=== PATIENT | male | born 1945 | race Caucasian/White ===

== ENCOUNTER 2018-10-12 10:19 | Day surgery (SDC) | payer MEDICARE, OTHER ==
[~2018-10-12 10:19] MED LIST: Acetaminophen TAB* 325 MG PO PRN; Buffered Lidocaine 1% SYRIN* 1 ML/SYRINGE INTRADERM ONE
[2018-10-12] MEDS ORDERED: Midazolam* 1 MG/ML 2 ML VIAL (2 MG) ONE (12:28)
[2018-10-12 12:55] VITALS: BP 145/76
[2018-10-12] MEDS ORDERED: Tetracaine 0.5% OPTH.SOL 4 ML* 1 DROP BTL ONE (13:51)
[2018-10-12] MEDS ORDERED: Lidocaine 1%* 5 ML VIAL ONE (13:51)
[2018-10-12] MEDS ORDERED: Phenylephrine OPHTH SOL 2.5%* 2 ML ONE (13:51)
[2018-10-12] MEDS ORDERED: Cyclopentolate 1% OPTH.SOL* 2 ML BTL ONE (13:51)
[2018-10-12] MEDS ORDERED: Tropicamide 1% OPTH.SOL* BTL ONE (13:51)
[2018-10-12] MEDS ORDERED: Neomycin/Polymy/Dex OPHTH.OIN* 3.5 GM ONE (13:51)
[2018-10-12] MEDS ORDERED: Ketorolac 0.5% OPHTH (NF) 0.5 % 5 ML BTL ONE (13:51)
--- NOTE | 2018-10-12 16:06 | OP ---
DATE OF OPERATION/DATE OF DICTATION: 10/12/2018 - [facility] DATE OF : 1945. SURGEON: Dr. Omari Lanza. [employer] ARCHITECT: None. ANESTHESIA: Topical with intravenous sedation. PRE-OP DIAGNOSIS: Cataract, right eye. POST-OP DIAGNOSIS: Cataract, right eye. OPERATIVE PROCEDURE: Phacoemulsification and cataract extraction with posterior chamber intraocular lens implant, right eye. COMPLICATIONS: None. BLOOD LOSS: None. DESCRIPTION OF PROCEDURE: The patient was brought to the operating room and received a small amount of intravenous sedation. A drop of Tetracaine was placed in his right eye. He was prepped and draped in the usual sterile fashion for ophthalmic surgery and attention was directed to the right eye where a speculum was placed. A paracentesis was created at the 11 o'clock position and 0.1 cc of 1 percent preservative-free Lidocaine was injected into the anterior chamber followed by DisCoVisc. The eye was digitally stabilized while a 2.75 mm keratome was used to create a triplanar clear corneal incision at the 9 o'clock position. A continuous curvilinear capsulorrhexis was created with a cystotome and Utrata forceps. BSS on a cannula was used to hydrodissect the lens from the capsule. Phacoemulsification was performed in a divide-and- conquer technique to create four fragments which were removed. Residual cortical material was removed with irrigation and aspiration. DisCoVisc was used to inflate the capsular bag and an AUOOTO 13.5 diopter lens was folded and inserted into the capsular bag. DisCoVisc was removed using irrigation and aspiration. BSS on a cannula was used to hydrate the corneal stroma and seal the wound. At the end of the case the pupil was round and the lens was centered. The eye was of normal pressure and the wound was water tight. The speculum was removed and topical Maxitrol ointment was placed on the surface of the eye. The eye was closed, patched and shielded and the patient was sent to the recovery room in stable condition with post operative instructions and follow-up appointment given. [id number] #: [id number] MTDD
== END 2018-10-12 13:06 | disposition home or self-care (01) ==
LOC: OREAST 10:19
PROVIDERS: ATTEND Ophthalmology
DX: H25.031 Anterior subcapsular polar age-related cataract, right eye (principal); I48.0 Paroxysmal atrial fibrillation; I25.10 Atherosclerotic heart disease of native coronary artery without angina pectoris; Z95.5 Presence of coronary angioplasty implant and graft; Z87.891 Personal history of nicotine dependence; R73.01 Impaired fasting glucose; J45.909 Unspecified asthma, uncomplicated; Z85.46 Personal history of malignant neoplasm of prostate
CPT/HCPCS: A9270-GY; J2250; V2632

== ENCOUNTER 2018-10-19 07:17 | Day surgery (SDC) | payer MEDICARE, OTHER ==
[2018-10-19] MEDS ORDERED: Ketorolac 0.5% OPHTH (NF) 0.5 % 5 ML BTL ONE (08:00)
[2018-10-19] MEDS ORDERED: Neomycin/Polymy/Dex OPHTH.OIN* 3.5 GM ONE (08:00)
[2018-10-19] MEDS ORDERED: Tropicamide 1% OPTH.SOL* BTL ONE (08:00)
[2018-10-19] MEDS ORDERED: Lidocaine 1%* 5 ML VIAL ONE (08:00)
[2018-10-19] MEDS ORDERED: Tetracaine 0.5% OPTH.SOL 4 ML* 1 DROP BTL ONE (08:00)
[2018-10-19] MEDS ORDERED: Cyclopentolate 1% OPTH.SOL* 2 ML BTL ONE (08:00)
[2018-10-19] MEDS ORDERED: Phenylephrine OPHTH SOL 2.5%* 2 ML ONE (08:00)
[2018-10-19] MEDS ORDERED: Midazolam* 1 MG/ML 2 ML VIAL (2 MG) ONE (08:13)
[2018-10-19] MEDS ORDERED: fentaNYL* 50 MCG/ML 2 ML VIAL (100 MCG VIAL) ONE (08:13)
[2018-10-19] MEDS ORDERED: Propofol* 10 MG/ML 20 ML BTL ONE (08:53)
[2018-10-19 09:08] VITALS: BP 141/78
--- NOTE | 2018-10-19 10:48 | OP ---
DATE OF OPERATION/DATE OF DICTATION: 10/19/2018 - [facility] DATE OF : 1945. SURGEON: Dr. Omari Lanza. DISPLAY DESIGNER: None. ANESTHESIA: Topical with intravenous sedation. PRE-OP DIAGNOSIS: Cataract, left eye. POST-OP DIAGNOSIS: Cataract, left eye. OPERATIVE PROCEDURE: Phacoemulsification and cataract extraction with posterior chamber intraocular lens implant, left eye. COMPLICATIONS: None. BLOOD LOSS: None. DESCRIPTION OF PROCEDURE: The patient was brought to the operating room and received a small amount of intravenous sedation. A drop of Tetracaine was placed in his left eye. He was prepped and draped in the usual sterile fashion for ophthalmic surgery and attention was directed to the left eye where a speculum was placed. A paracentesis was created at the 5 o'clock position and 0.1 cc of 1 percent preservative-free Lidocaine was injected into the anterior chamber followed by DisCoVisc. The eye was digitally stabilized while a 2.75 mm keratome was used to create a triplanar clear corneal incision at the 3 o' clock position. A continuous curvilinear capsulorrhexis was created with a cystotome and Utrata forceps. BSS on a cannula was used to hydrodissect the lens from the capsule. Phacoemulsification was performed in a divide-and- conquer technique to create four fragments which were removed. Residual cortical material was removed with irrigation and aspiration. DisCoVisc was used to inflate the capsular bag and an AUOOTO 17.5 diopter lens was folded and inserted into the capsular bag. DisCoVisc was removed using irrigation and aspiration. BSS on a cannula was used to hydrate the corneal stroma and seal the wound. At the end of the case the pupil was round and the lens was centered. The eye was of normal pressure and the wound was water tight. The speculum was removed and topical Maxitrol ointment was placed on the surface of the eye. The eye was closed, patched and shielded and the patient was sent to the recovery room in stable condition with post operative instructions and follow-up appointment given. [id number] #: [id number] MTDD
== END 2018-10-19 10:15 | disposition home or self-care (01) ==
LOC: OREAST 07:17
PROVIDERS: ATTEND Ophthalmology
DX: H25.042 Posterior subcapsular polar age-related cataract, left eye (principal); I10 Essential (primary) hypertension; J45.909 Unspecified asthma, uncomplicated; I25.10 Atherosclerotic heart disease of native coronary artery without angina pectoris; Z95.5 Presence of coronary angioplasty implant and graft; I48.0 Paroxysmal atrial fibrillation; R73.01 Impaired fasting glucose; Z87.891 Personal history of nicotine dependence; C61 Malignant neoplasm of prostate
CPT/HCPCS: A9270-GY; J2250; J2704; J3010; V2632

== ENCOUNTER 2019-03-15 16:40 | Observation (INO) | payer MEDICARE, OTHER ==
[2019-03-15 17:24] LABS: ABS Basophils 0.1 10^3/ul (0-0.2); ABS Eosinophils 0.1 10^3/ul (0-0.6); ABS Lymphocytes 1.6 10^3/ul (1.0-4.8); ABS Monocytes 0.5 10^3/ul (0-0.8); ABS Neutrophils 3.3 10^3/ul (1.5-7.7); Eosinophil % 2.4 %; Hematocrit 41 % (42-52); Hemoglobin 14.1 g/dL (14.0-18.0); Lymphocyte % 29.2 %; Mean Corpuscular HGB Conc 34 g/dL (31-36); Mean Corpuscular Hemoglobin 32 pg (27-31); Mean Corpuscular Volume 95 fL (80-94); Mean Platelet Volume 8.3 fL (7.4-10.4); Platelet Count 199 10^3/uL (150-450); Red Blood Count 4.36 10^6 /uL (4.18-5.48); Red Cell Distribution Width 13 % (10-15); White Blood Count 5.5 10^3/uL (3.5-10.8)
[2019-03-15 17:32] LABS: INR 0.97 (0.82-1.09)
[2019-03-15 17:34] LABS: Calcium 9.1 mg/dL (8.6-10.3); Potassium 3.8 mmol/L (3.5-5.0); Total Bilirubin 0.6 mg/dL (0.2-1.0)
[2019-03-15 17:40] LABS: Albumin/Globulin Ratio 1.7 (1-3); BUN/Creatinine Ratio 12.1 (8-20); EGFR African American 98.8 (>60); EGFR Non-African American 81.7 (>60); Globulin 2.4 g/dL (2-4); Total Protein 6.4 g/dL (6.4-8.9)
[2019-03-15 17:41] LABS: Troponin I 0.03 ng/mL (<0.04)
--- NOTE | 2019-03-15 18:00 | ED ---
Complex/Multi-Sys Presentation - HPI Summary HPI Summary: 73 year old M presenting to [facility] accompanied by significant other of 25 years, Caridad, complains of worsening generalized weakness and fatigue since 3 weeks ago. He reports intermittent episodes of dizziness described as room spinning, each episode lasting several minutes, that happened 2-3 weeks ago. He reports mid sternal chest discomfort that waxes and wanes at night since 1 month ago. Patient states he does not currently have chest discomfort. Patient states that his symptoms have worsened in the 1.5 hours ago (16:30 today 03/15/19) when he developed bilateral facial numbness, bilateral lower extremity weakness, difficulty walking. Significant other denies slurred speech. Significant other states that patient is too fatigued to get his words out. Patient reports 25 pound weight loss over the last few months. Significant other states that patient is normally very active. The patient rates the pain 0/10 in severity per nurse triage note. Pt also advised nurse that he had neck pain, that he did not relate to Dr. Ramires. Pt also has chronic low back pain, per old records, that he did not relate to Dr. Ramires. Symptoms aggravated by nothing. Symptoms alleviated by nothing. PMHx: prostate cancer, cardiac stents. Vital signs while in room: HR 54 BPM, BP 148/72, O2 sat 97% Home Medications Medication Instructions Recorded Confirmed Type Montelukast Sodium TAB* [Singulair 10 mg PO BEDTIME 09/18/12 03/15/19 History TAB*] traMADol TAB* [Ultram*] 50 mg PO Q6HR PRN 09/18/12 03/15/19 History Losartan TAB* [Cozaar TAB*] 25 mg PO BEDTIME 10/05/18 03/15/19 History Multivit-Min/Folic/Vit K/Lycop 1 tab PO QAM 10/05/18 03/15/19 History [Men's 50 Plus Multivitamin Tab] Ascorbic Acid TAB* [Vitamin C 1,000 mg PO DAILY 03/15/19 03/15/19 History TAB*] Beclomethasone 80 MCG MDI(NF) 2 puff INH BID 03/15/19 03/15/19 History [Qvar 80 MCG MDI(NF)] Diazepam TAB(*) [Valium TAB(*)] 5 mg PO BID PRN 03/15/19 03/15/19 History Simvastatin TAB(NF) [Zocor(NF)] 20 mg PO BEDTIME 03/15/19 03/15/19 History - History Of Current Complaint Chief Complaint: EDHeadache Time Seen by Provider: 03/15/19 17:39 Hx Obtained From: Patient, Family/Filler [employer] Long - Caridad FONTENOT, of 25 yrs Onset/Duration: Lasting Weeks - 3, Still Present, Worse Since - 16:30 today 03/15 Timing: Constant Severity Currently: None - no pain upon presentation to ED. Did have chest pain and neck pain, and has chronic back pain Severity Initially: Moderate Location: Pain At: - chest, neck and back Character: Dull Aggravating Factor(s): Nothing Alleviating Factor(s): Nothing Associated Signs And Symptoms: Positive: Dizziness, Weakness, Chest Pain, Back Pain, Other - fatigue, dizziness, mid sternal chest discomfort, bilateral facial numbness, bilateral lower extremity weakness, difficulty walking; NEG: slurred speech - Allergies/Home Medications Allergies/Adverse Reactions: Allergies Allergy/AdvReac Type Severity Reaction Status Date / Time Environmental Allergies Allergy Unknown Uncoded 10/12/18 10:38 Reaction Details Home Medications: Home Medications Ascorbic Acid TAB* [Vitamin C TAB*] 1,000 mg PO DAILY 03/15/19 [History Confirmed 03/15/19] Beclomethasone 80 MCG MDI(NF) [Qvar 80 MCG MDI(NF)] 2 puff INH BID 03/15/19 [ History Confirmed 03/15/19] Diazepam TAB(*) [Valium TAB(*)] 5 mg PO BID PRN 03/15/19 [History Confirmed 01/24] Simvastatin TAB(NF) [Zocor 20 MG (NF)] 20 mg PO BEDTIME 03/15/19 [History Confirmed 03/15/19] PMH/Surg Hx/FS Hx/Imm Hx Previously Healthy: No Endocrine/Hematology History: Denies: Hx Diabetes Cardiovascular History: Reports: Hx Atrial Fibrillation, Hx Coronary Artery Disease - 5 Cardiac Stents 2009, 2 Cardiac Stents 2012, Hx Hypercholesterolemia , Other Cardiovascular Problems/Disorders - Cardioverted x2 2009 Denies: Hx Congestive Heart Failure, Hx Hypertension, Hx Pacemaker/ICD Respiratory History: Reports: Hx Asthma Denies: Hx Sleep Apnea, Other Respiratory Problems/Disorders GI History: Denies: Other GI Disorders History: Reports: Hx Benign Prostatic Hyperplasia, Other Problems/ Disorders - Low grade prostate cancer-sees Dr Leon Denies: Hx Renal Disease Musculoskeletal History: Reports: Hx Back Problems, Other Musculoskeletal History - FALL IN 2011 LEADING TO FX OF RIGHT CALCANEOUS Denies: Hx Osteoporosis Sensory History: Reports: Hx Cataracts - Bilateral, Hx Contacts or Glasses Denies: Hx Hearing Aid Opthamlomology History: Reports: Hx Cataracts - Bilateral, Hx Contacts or Glasses EENT History: Reports: Other - tinnitus Neurological History: Reports: Other Neuro Impairments/Disorders - vertigo Psychiatric History: Reports: Hx Panic Disorder - Cancer History Cancer Type, Location and Year: prostate CA Hx Chemotherapy: No - Surgical History Surgical History: Yes Surgery Procedure, Year, and Place: HERNIA 2005,BUNION 2005,CARDIAC CATH WITH STENT 2009 AND Jun Hx Anesthesia Reactions: No Infectious Disease History: No Infectious Disease History: Denies: Traveled Outside the [place] in Last 30 Days - Family History Known Family History: Positive: Cardiac Disease - CHF, Hypertension, Diabetes, Other - asthma, cancer, glaucoma - Social History Alcohol Use: Occasionally Substance Use Type: Reports: None Hx Tobacco Use: Yes Smoking Status (MU): Former Smoker Amount Used/How Often: 1 PACK PER WEEK FOR 20 YEARS Review of Systems Positive: Fatigue Eyes: Negative Positive: Other - mid sternal chest discomfort Respiratory: Other - dyspnea on exertion per triage note, not to Dr. Ramires Positive: Other - 25 pound weight loss in the past few months Positive: no symptoms reported Positive: Arthralgia - neck pain, not at this time, per triage note, not to Dr. Ramires , Other - difficulty walking Skin: Negative Neurological: Other - Dizziness, difficulty walking Positive: Weakness, Numbness - bilateral faical. Negative: Slurred Speech All Other Systems Reviewed And Are Negative: Yes Physical Exam - Summary Physical Exam Summary: Appearance: Ill-appearing, no acute pain distress, well-nourished Skin: Warm, color reflects adequate perfusion, dry Head: Normal Head/Face inspection, atraumatic Eyes: Conjunctiva clear, PERRL, EOMI, no nystagmus ENT: Normal inspection, TMs clear bilaterally Neck: Supple, no nodes, no JVD, no bruits Respiratory: Lungs clear, normal breath sounds, no respiratory distress Cardio: Bradycardic and regular rhythm, No murmur, pulses normal, brisk capillary refill Abdomen: Soft, nontender Bowel sounds: Present Musculoskeletal: Strength Intact/ROM intact, no calf tenderness, no edema. Psychological: Normal Neuro: A&O x3, CN II-XII intact, motor function 5/5, sensation intact, cerebellar normal GCS: 15 NIH: 0 Triage Information Reviewed: Yes Vital Signs On Initial Exam: Initial Vitals Temp Pulse Resp BP Pulse Ox 97.3 F 57 18 148/84 97 03/15/19 16:44 03/15/19 16:44 03/15/19 16:44 03/15/19 16:44 03/15/19 16:44 Vital Signs Reviewed: Yes - Ariane Coma Scale Best Eye Response: 4 - Spontaneous Best Motor Response: 6 - Obeys Commands Best Verbal Response: 5 - Oriented Coma Scale Total: 15 Procedures - Sedation Patient Received Moderate/Deep Sedation with Procedure: No Diagnostics - Vital Signs Vital Signs Temp Pulse Resp BP Pulse Ox 03/15/19 17:50 97 03/15/19 17:15 53 16 99 03/15/19 17:12 60 137/86 03/15/19 17:10 56 135/86 03/15/19 17:08 54 141/82 03/15/19 16:44 97.3 F 57 18 148/84 97 - Laboratory Lab Results: Lab Results 03/15/19 03/15/19 03/15/19 Range/Units 17:07 17:07 17:07 WBC 5.5 (3.5-10.8) 10^3/uL RBC 4.36 (4.18-5.48) 10^6 /uL Hgb 14.1 (14.0-18.0) g/dL Hct 41 L (42-52) % MCV 95 H (80-94) fL MCH 32 H (27-31) pg MCHC 34 (31-36) g/dL RDW 13 (10-15) % Plt Count 199 (150-450) 10^3/uL MPV 8.3 (7.4-10.4) fL Neut % (Auto) 59.3 % Lymph % (Auto) 29.2 % [place] % (Auto) 8.2 % Eos % (Auto) 2.4 % Baso % (Auto) 0.9 % Absolute Neuts (auto) 3.3 (1.5-7.7) 10^3/ul Absolute Lymphs (auto) 1.6 (1.0-4.8) 10^3/ul Absolute Monos (auto) 0.5 (0-0.8) 10^3/ul Absolute Eos (auto) 0.1 (0-0.6) 10^3/ul Absolute Basos (auto) 0.1 (0-0.2) 10^3/ul Absolute Nucleated RBC 0.0 10^3/ul Nucleated RBC % 0.0 INR (Anticoag Therapy) 0.97 (0.82-1.09) Sodium 140 (135-145) mmol/L Potassium 3.8 (3.5-5.0) mmol/L Chloride 106 (101-111) mmol/L Carbon Dioxide 29 (22-32) mmol/L Anion Gap 5 (2-11) mmol/L BUN 11 (6-24) mg/dL Creatinine 0.91 (0.67-1.17) mg/dL Est GFR ( Amer) 98.8 (>60) Est GFR (Non-Af Amer) 81.7 (>60) BUN/Creatinine Ratio 12.1 (8-20) Glucose 81 (70-100) mg/dL Calcium 9.1 (8.6-10.3) mg/dL Total Bilirubin 0.60 (0.2-1.0) mg/dL AST 20 (13-39) U/L ALT 21 (7-52) U/L Alkaline Phosphatase 52 (34-104) U/L Troponin I 0.03 (<0.04) ng/mL Total Protein 6.4 (6.4-8.9) g/dL Albumin 4.0 (3.2-5.2) g/dL Globulin 2.4 (2-4) g/dL Albumin/Globulin Ratio 1.7 (1-3) Result Diagrams: 03/16/19 06:09 03/16/19 06:09 Lab Statement: Any lab studies that have been ordered have been reviewed, and results considered in the medical decision making process. - Radiology CXR Radiology Interpretation Completed By: ED Physician Summary of Radiographic Findings: No acute process. Pending official report. - CT Brain CT Interpretation Completed By: Radiologist Summary of CT Findings: 1. No acute intracranial abnormality. 2. No change from the comparison study. ED physician has reviewed this report. - EKG 1648 Cardiac Rate: Bradycardia - 59 EKG Rhythm: Sinus Bradycardia ST Segment: Non-Specific Ectopy: PVCs - 1 EKG Comparison: No Significant Change - c/w 09/18/12 Summary of EKG Findings: An EKG at 16:48 reveals sinus bradycardia at 59 BPM, nml IV CT, nml QTc, 1 PVC. No acute changes. Compared to EKG done on 09/18/12, no significant change. ED MD has reviewed and interpreted this EKG. 1759 Cardiac Rate: Bradycardia - 52 BPM EKG Rhythm: Sinus Bradycardia ST Segment: Non-Specific Ectopy: None EKG Comparison: No Significant Change - on 03/15/19 at 16:48 Summary of EKG Findings: An EKG at 17:59 reveals sinus bradycardia 52 BPM, nml IV CT, nml QTc. No acute changes. Similar to prior EKG on 03/15/19 at 16:48. ED MD has reviewed and interpreted this EKG. National Institutes Of Health - NIH Scale Level of Consciousness: Alert/Keenly Responsive Ask Patient the Month and His/Her Age: Both Correct Ask Pt to Open/Close Eyes and Fiberglass Roller/Release Non-Paretic Hand: Both Correctly Best Gaze (Only Horizontal Eye Movement): Normal Visual Field Testing: No Visual Loss Facial Paresis-Pt to Smile & Close Eyes or Grimace Symmetry: Normal/Symmetrical Motor Function - Right Arm: No Drift-Holds 10 Seconds Motor Function - Left Arm: No Drift-Holds 10 Seconds Motor Function - Right Leg: No Drift-Holds 10 Seconds Motor Function - Left Leg: No Drift-Holds 10 Seconds Limb Ataxia-Must be out of Proportion to Weakness Present: Absent Sensory (Use Pinprick to Test Arms/Legs/Trunk/Face): Normal Best Language (Describe Picture, Name Items): No Aphasia Dysarthria (Read Several Words): Normal Extinction and Inattention: No Abnormality Total Score: 0 Re-Evaluation - Re-Evaluation First Eval Re-Evaluation Time: 20:05 Change: Unchanged Comment: Patient updated on his lab and imaging findings. He is agreeable to get Chest CTA and to evaluation by hospitalist for admission Complex Multi-Symp Course/Dx Course Of Treatment: 73 year old M presenting to [facility] complains of worsening generalized weakness, fatigue, dizziness, TRINH since 3 weeks ago. He reports mid sternal chest discomfort since 1 month ago. He reports 25 pound weight loss over the last few months. Patient states that his symptoms have worsened in the 1.5 hours ago (16:30 today 03/15/19) when he developed bilateral facial numbness , bilateral lower extremity weakness, difficulty walking. Physical exam findings: Patient is in no acute pain distress. He is bradycardic. NIH 0. Patient medications reviewed this visit. Nurses notes reviewed. Allergies noted. High blood pressure noted. Bloodwork results with no significant abnormalities except for Hct 41, MCV 95, MCH 32, D-Dimer 415, troponin 0.03. Repeat troponin is 0.04. Urinalysis results with no significant abnormalities except for trace leukocyte esterase and ascorbic acid. An EKG at 16:48 reveals sinus bradycardia at 59 BPM, nml IV CT, nml QTc, 1 PVC. No acute changes. Compared to EKG done on 09/18/12, no acute changes. CXR shows no acute process. Preliminary reading by ED MD. CT Brain shows, per radiologist: 1. No acute intracranial abnormality. 2. No change from the comparison study. Repeat EKG at 17:59 reveals sinus bradycardia 52 BPM, nml IV CT, nml QTc. No acute changes. Similar to prior EKG on 03/15/19 at 16:48. CTA results pending at time of change of shift and transfer of care to Dr. Roe. The patient's labs show rising troponin. The patient's EKGs x 2 show sinus bradycardia. Pt has significant hx of CAD. Spoke with Dr. Roe, hospitalist, at 20:42, who agrees to admit the patient. The patient will be admitted to the hospitalist. The patient is agreeable to this plan. - Diagnoses Differential Diagnoses/HQI/PQRI: Cardiac Ischemia, CVA, Metabolic Abnormality Provider Diagnoses: Weakness, Elevated troponin, Chest pain, Facial numbness, Impaired ambulation - Physician Notifications Discussed Care Of Patient With: Madi Roe Time Discussed With Above Provider: 20:42 Instructed by Provider To: Other - Dr. oRe, hospitalist, agrees to admit patient. Discharge ED - Sign-Out/Discharge Documenting (check all that apply): Patient Departure - Admit to hospitalist - Discharge Plan Condition: Stable Disposition: ADMITTED TO [facility] - Billing Disposition and Condition Condition: STABLE Disposition: Admitted to [facility] - Attestation Statements Document Initiated by Yasminibe: Yes Documenting Scribe: Violet Jeter Provider For Whom Grace is Documenting (Include Credential): Mary Grace Ramires MD Scribe Attestation: Violet Lo, scribed for Mary Grace Ramires MD on 04/04/19 at 1807. Scribe Documentation Reviewed: Yes Provider Attestation: The documentation as recorded by the yasminibViolet valiente accurately reflects the service I personally performed and the decisions made by me, Mary Grace Ramires MD Status of Scribe Document: Viewed
[2019-03-15 19:24] LABS: Activated Partial Thrombo Time 33.9 seconds (26.0-38.0)
[2019-03-15 19:39] LABS: Creatine Kinase 46 U/L (10-223); Magnesium 2.1 mg/dL (1.9-2.7)
[2019-03-15 19:41] LABS: CKMB ng/mL 1.5 ng/mL (0.6-6.3)
[2019-03-15 19:53] LABS: T4, Total 6.45 mcg/dL (6.09-12.23)
[2019-03-15 19:54] LABS: Troponin I 0.04 ng/mL (<0.04)
[2019-03-15 19:57] LABS: TSH (Thyroid Stimulating Horm) 0.79 mcIU/mL (0.34-5.60)
[2019-03-15] MEDS ORDERED: Iohexol 350* (CONTRAST) 500 ML MDV IV ONE (20:23)
[2019-03-15 21:19] LABS: Urine Appearance Clear; Urine Bacteria Absent (Absent); Urine Bilirubin Negative (Negative); Urine Blood Negative (Negative); Urine Color Yellow; Urine Glucose Negative (Negative); Urine Ketones Negative (Negative); Urine Nitrite Negative (Negative); Urine Protein Negative (Negative); Urine Red Blood Cell Absent (Absent); Urine Urobilinogen Negative (Negative); Urine White Blood Cell Trace(0-5/hpf) (Absent)
[2019-03-15] MEDS ORDERED: traZODone TAB* 50 MG TAB PO PRN (22:15)
[2019-03-15] MEDS ORDERED: Diazepam TAB(*) 5 MG PO PRN (22:16)
[2019-03-15] MEDS ORDERED: traMADol TAB* 50 MG PO PRN (22:16)
[2019-03-15 22:36] LABS: Troponin I 0.04 ng/mL (<0.04)
[2019-03-15] MEDS ORDERED: Enoxaparin(*) 40 MG/0.4 ML SYR SUBCUT SCH (23:30)
[2019-03-16] MEDS ORDERED: Atorvastatin* 10 MG TAB PO SCH (01:00)
[2019-03-16] MEDS ORDERED: Losartan TAB* 25 MG PO SCH (01:00)
[2019-03-16] MEDS ORDERED: Montelukast Sodium TAB* 10 MG PO SCH (01:00)
--- NOTE | 2019-03-16 01:46 | HP ---
ADMISSION HISTORY AND PHYSICAL: DATE OF ADMISSION: 03/15/19 CHIEF COMPLAINT: The patient was complaining of chest pain, dizziness, altered mental status, facial numbness. HISTORY OF PRESENT ILLNESS: This is a 73-year-old male with past medical history of coronary artery disease, status post total of 7 stents, 5 in May of 2009 and 2 in June 2012, came in due to gradual onset of multiple nonspecific symptoms. He was stating that he has been having generalized weakness and fatigue since 3 weeks, and also described some dizziness, described as a room spinning sensation, which has been an intermittent episode. He also has a history of tinnitus for which his aspirin was stopped and complaining of intermittent chest discomfort, which is also a gradual onset. He describes it as a pain around his substernal area, which has been worsening over the last 3 weeks and was very worse today, so he finally decided to come in. He also states that during the episodes of the dizziness and lightheadedness, he has difficulty walking and was having some numbness especially on the angle of his face and felt like his speech was slurred. He also reports a 25-pound weight loss over the last few months. For the amount of symptoms that he presented with, the patient did not have any specific finding on physical exam; however, he did have some minimally elevated troponins , so ER physician recommended admission for further evaluation. PAST MEDICAL HISTORY: As mentioned, history of coronary artery disease, status post 5 stents on 06/05/09, and there were 2 in June 2012. 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 He also has a history of tinnitus, especially worse with aspirin use; history of hypertension; hyperlipidemia; history of prostate cancer, which was noted to be low grade, follows Dr. Olsen; and benign prostatic hypertrophy, not having any urinary symptoms; history of asthma, but no attacks since 1976 when he quit smoking; chronic low back pain. PAST SURGICAL HISTORY: Include tonsillectomy, right foot bunionectomy twice, umbilical hernia repair and septoplasty, and the 7 cardiac stents that was previously mentioned. HOME MEDICATIONS: The patient is currently on: 1. Ascorbic acid 1000 mg oral daily. 2. Multivitamins 1 tablet every morning. 3. Valium 5 mg p.o. b.i.d. for tinnitus. 4. Simvastatin 20 mg p.o. at bedtime. 5. Singulair 10 mg at bedtime. 6. Losartan 25 mg at bedtime. 7. QVAR 2 puffs inhalation b.i.d. 8. Ultram 50 mg q.6 hours p.r.n. pain. ALLERGIES: The patient is documented to have environmental allergies, but otherwise denies any other allergies to medications. FAMILY HISTORY: Mom at her age 90, had a history of stroke and coronary artery disease. Dad at age 63 with an MS. SOCIAL HISTORY: He is a former smoker, quit in 1976, smoked at about half a pack per day for 20 years. Drinks about a glass of wine per week. Retired from [employer] in [place]. He was never and has no children, but he does have a significant other name, Caridad, who he has been with for 25 years , who is his healthcare proxy and the patient is also full code. REVIEW OF SYSTEMS: A 14-point review of systems did not reveal any new information other than what is mentioned in the HPI. PHYSICAL EXAMINATION GENERAL: The patient is awake, alert, and oriented to time, place, and person. Did not appear to be in any acute distress. VITAL SIGNS: In the ER, BP was noted to be 143/75, temperature 98, heart rate was noted to be anywhere from 50 to 60 on the monitor, respiratory rate 18, saturating 95% on room air. HEAD AND NECK: Atraumatic, normocephalic. Bilateral pupils are reactive. Oral mucosa was moist. Neck is supple. No jugular venous distention. LUNGS: Clear to auscultation bilaterally. No wheezing, rhonchi or rales. HEART: S1 and S2. Irregular bradycardia. ABDOMEN: Soft, nontender, nondistended. EXTREMITIES: No cyanosis, clubbing or edema. NEUROLOGIC: The patient had full strength in all 4 extremities. He was able to walk without any limitations. DIAGNOSTIC STUDIES/LAB DATA: CBC was unremarkable except for minimally elevated MCV at 95. Coagulation profile shows elevated D-dimer at 415. Comprehensive metabolic panel was unremarkable including TSH which was normal and free T4, which was in the normal range. Troponin first set was 0.03, second was 0.04, and third was also 0.04. Lactic acid was normal at 0.8. Magnesium normal at 2.1. LFTs within normal limits. Urinalysis shows trace leuk esterase, but negative for any nitrite. EKG shows sinus bradycardia. EKG showed sinus rhythm at 52 beats per minute when compared to his old EKG from 2013 and is essentially unchanged waveform. Brain CT was read as no acute intracranial abnormality. No change from the comparison study in 2013. CT chest with contrast showed no visible acute pulmonary embolism. There is a left base atelectatic change or scar. There is a subpleural patchy nodular opacity in the superior segment of the left lower lobe measuring a maximum of 17, cannot exclude indeterminant pulmonary nodule. Repeat CT at 3 to 6 months to confirm persistence of the nodule recommended by Radiology. IMPRESSION: This is a 73-year-old male with past medical history of coronary artery disease, status post stent and multiple nonspecific symptoms including dizziness and numbness, facial weakness, slurred speech and also chest pain. ASSESSMENT AND PLAN: 1. Chest pain, very minimally elevated troponin. We will get echocardiogram and stress test results, and get serial troponin to trend and see if the patient 's troponin goes any higher than 0.04. We could consider a Cardiology consult in the morning. 2. Nonspecific neurological symptoms. We will get an MRI of the brain. Again , there was no real weakness or unsteadiness that I noticed the patient. Further treatment will be based on MRI results and could consider Neurology consult in the morning. 3. History of coronary artery disease. Does not take aspirin due to tinnitus and his fur farmer apparently stopped Plavix as well, which is unusual in my opinion, but he does not wish to take any Plavix at this point as he claims that his fur farmer stated that he does not need any blood thinners. 4. History of benign prostate cancer. 5. History of hypertension. Restart home medications. 6. History of dyslipidemia. Restart home medications. 7. History of asthma. Questionable component of chronic obstructive pulmonary disease given his 20 years history of smoking. Continue his home medications. 8. History of low back pain. Continue his tramadol. 9. Complaining of insomnia. We will give a dose of p.r.n. trazodone at bedtime. 10. DVT prophylaxis with Lovenox subcu. 11. Code status. Full code with Caridad Manrique, his domestic partner being the healthcare proxy. [id number]/[facility] #: [id number] [facility]
[2019-03-16 07:05] LABS: ABS Eosinophils 0.2 10^3/ul (0-0.6); ABS Lymphocytes 2.3 10^3/ul (1.0-4.8); ABS Monocytes 0.5 10^3/ul (0-0.8); ABS Neutrophils 2.2 10^3/ul (1.5-7.7); Eosinophil % 3.6 %; Hematocrit 40 % (42-52); Hemoglobin 13.9 g/dL (14.0-18.0); Lymphocyte % 43.8 %; Mean Corpuscular HGB Conc 35 g/dL (31-36); Mean Corpuscular Hemoglobin 33 pg (27-31); Mean Corpuscular Volume 94 fL (80-94); Mean Platelet Volume 8.7 fL (7.4-10.4); Nucleated Red Blood Cells % 0.1; Platelet Count 187 10^3/uL (150-450); Red Cell Distribution Width 13 % (10-15); White Blood Count 5.2 10^3/uL (3.5-10.8)
[2019-03-16 07:13] LABS: Troponin I 0.03 ng/mL (<0.04)
[2019-03-16 07:14] LABS: BUN/Creatinine Ratio 14.1 (8-20); Calcium 8.8 mg/dL (8.6-10.3); EGFR African American 97.6 (>60); EGFR Non-African American 80.6 (>60); HDL Cholesterol 37.9 mg/dL; Potassium 3.5 mmol/L (3.5-5.0)
[2019-03-16] MEDS ORDERED: Multivitamins/Minerals TAB PO SCH (09:00)
[2019-03-16] MEDS ORDERED: Ascorbic Acid TAB* 500 MG PO SCH (09:00)
[2019-03-16] MEDS ORDERED: Regadenoson* 0.4 MG/5 ML SYRINGE ONE (10:53)
[2019-03-16] MEDS ORDERED: Aminophylline IV* 25 MG/ML 10 ML VIAL ONE (10:54)
[2019-03-16 16:09] VITALS: BP 129/60
--- NOTE | 2019-03-16 16:17 | ECHO ---
*[facility]* [place] [address] Fax #: [phone] Transthoracic Echocardiogram Patient: Timothy Nunes : 1945 Study Date: 03/16/2019 Age: 73 Gender: M HR: 85 bpm Height: 66 in /167.6 cm BSA: 1.83 m^2 Weight: 162.7 lb /73.9 kg BMI: 26.3 kg/m^2 *Cane Weigher: * Shira Schaefer [place] *Referring Physician: * Madi Roe *Reading Physician: * Deniz Ortiz MD Indications: TIA. History: Coronary artery disease. Risk factors: Hypertension. Dyslipidemia. Labs, prior tests, procedures, and surgery: Catheterization. There was a stenosis which was treated with a stent. Conclusions Summary: - Left ventricle: The estimated ejection fraction is 50-55%. - Left atrium: The atrium is mildly dilated. - Right atrium: The atrium is mildly dilated. - Atrial septum: A PFO is not demonstrated by color Doppler or agitated saline contrast. - Mitral valve: The findings are consistent with mild stenosis. There is trace regurgitation. The valve area is 1.9 cm^2. The valve area by pressure half-time is 2.2 cm^2. - Tricuspid valve: There is trace regurgitation. - No previous echocardiogram available. Study data: Transthoracic echocardiogram. Procedure: Transthoracic echocardiography was performed. Image quality was good. A bubble study was performed. Complete 2D, spectral Doppler, and color flow Doppler. Location: Bedside. Patient status: Inpatient. Patient room number: 444. Rhythm: Normal sinus rhythm. Findings Left ventricle: The cavity size is normal. Wall thickness is normal. The estimated ejection fraction is 50-55%. Wall motion is normal; there are no regional wall motion abnormalities. There is no consistent Doppler evidence of clinically significant diastolic dysfunction. Right ventricle: The cavity size is normal. Systolic function is normal. Left atrium: The atrium is mildly dilated. Right atrium: The atrium is mildly dilated. Atrial septum: A PFO is not demonstrated by color Doppler or agitated saline contrast. Mitral valve: The Mitral valve annulus appears calcified. The leaflets are mildly thickened. The findings are consistent with mild stenosis. There is trace regurgitation. Aortic valve: The valve is trileaflet. The leaflets are mildly thickened. There is no evidence of stenosis. There is no significant regurgitation. Tricuspid valve: The leaflets are normal thickness. There is no evidence of stenosis. There is trace regurgitation. Pulmonic valve: The leaflets are normal thickness. There is no evidence of stenosis. There is no significant regurgitation. Aorta: The aortic root appears normal. The aortic arch appears normal. Pericardium: There is no significant pericardial effusion. Pulmonary arteries: Not well visualized. Systolic pressure is within the normal range. Systemic veins: Inferior vena cava: The vessel is normal in size. There is (>= 50%) respiratory change in the IVC dimension. Measurements Left ventricle Value Ref Aortic valve continued Value Ref EUSEBIO, LAX 4.4 cm 4.2 - 5.8 VTI, S 31.5 cm ----- ESD, LAX 2.7 cm 2.5 - 4.0 Mean grad, S 4.0 mm Hg ----- FS, LAX 38 % 25 - 43 Peak grad, S 7.0 mm Hg ----- PW, ED, LAX 1.0 cm 0.6 - 1.0 LVOT/AV, VTI ratio 0.7 ----- EF 69 % 52 - 72 DANYA, VTI 2.10 cm^2 ----- E', lat karo, TDI (L) 9.4 cm/sec >=10.0 DANYA, Vmax 2.40 cm^2 - ---- E/e', lat karo, 9 TDI Mitral valve Value Ref E', med karo, TDI 7.5 cm/sec >=7.0 Peak E 0.88 m/sec - ---- E/e', med karo, 12 Peak A 0.65 m/sec ---- - TDI Decel time 198 ms ----- E', avg, TDI 8.5 cm/sec PHT 102 ms ---- - E/e', avg, TDI 10 <=14 Mean grad, D 1.0 mm Hg - ---- Peak grad, D 3.0 mm Hg ----- LVOT Value Ref Peak E/A ratio 1.3 ----- Diam, S 2.00 cm MVA, PHT 2.2 cm^2 ----- Area 3.1 cm^2 Peak andree, S 1 m/sec Pulmonic valve Value Ref VTI, S 21.5 cm Peak v, S 0.81 m/sec ----- Peak grad, S 4 mm Hg Peak grad, S 3.0 mm Hg ----- Mean grad, S 2 mm Hg Tricuspid valve Value Ref Ventricular septum Value Ref TR peak v 2.23 m/sec <=2.8 IVS, ED 1.0 cm 0.6 - 1.0 Peak RV-RA grad, S 20 mm Hg ----- Right ventricle Value Ref Aortic root Value Ref EUSEBIO, LAX 2.8 cm Root diam 2.7 cm <4.0 EUSEBIO minor ax, A4C (H) 3.8 cm 1.9 - 3.5 mid Ascending aorta Value Ref Pressure, S 23 mm Hg AAo AP diam, S 3.0 cm ----- Left atrium Value Ref Pulmonary artery Value Ref AP dim, ES 3.80 cm 3.00 - Pressure, S 20.0 mm Hg ----- 4.00 ML dim, A4C 3.9 cm Inferior vena cava Value Ref SI dim, A4C 5.5 cm Diam 1.8 cm ----- Vol/bsa, ES, A/L (H) 41 ml/m^2 16 - 34 Pulmonary veins Value Ref Right atrium Value Ref Peak v, S 0.71 m/sec ----- SI dim, ES (H) 5.6 cm 3.4 - 5.3 Peak v, D 0.53 m/sec ----- ML dim, ES, A4C (H) 4.5 cm 2.6 - 4.4 Peak S/D ratio 1.3 ----- Estimated RAP 3 mm Hg A rev duration 82 ms ----- Aortic valve Value Ref Karo diam, ED 2.1 cm Peak v, S 1.3 m/sec Legend: (L) and (H) jodee values outside specified reference range. Prepared and electronically signed by Deniz Ortiz MD 03/16/2019 16:16
[2019-03-16] MEDS ORDERED: Gadoteridol* (CONTRAST) 279.3 MG/ML 10 ML IV ONE (17:02)
[2019-03-16] MEDS ORDERED: Mometasone 220 MCG MDI INH SCH (18:00)
--- NOTE | 2019-03-16 21:29 | DS ---
DISCHARGE SUMMARY: DATE OF ADMISSION: DATE OF DISCHARGE: 03/16/19 ADDENDUM: Please note that the patient had remained in sinus bradycardia and sinus arrhythmia throughout his hospital stay without symptoms and was normotensive. He underwent a cardiac stress test that noted the patient to be in sinus bradycardia with low risk. He has had complaints of leg numbness and dizziness, some of it due to a bout of benign positional vertigo that he has history of. Nevertheless, we obtained an MRI of his brain with the report just coming back and read by the radiologist as "no acute intracranial abnormalities identified. Mild chronic small- vessel ischemic change is likely. Mild cerebral volume loss." At this point, the patient is back to his baseline, ambulates without any support and with no neurologic deficits, and he is going to be discharged home to follow up with his primary care provider in approximately 4 to 7 days. PHYSICAL EXAMINATION: Vital Signs: At the time of discharge, blood pressure of 129/60, heart rate of 59 and regular, respiratory rate 16, oxygen saturation saturation 98% on room air, temperature 97.8. General: The patient is a pleasant 73-year-old male who is in no acute distress. Alert, awake, and oriented x3. HEENT: Head atraumatic and normocephalic. Eyes: Pupils are equal and reactive to light and accommodation. Oropharynx clear. Mucosa moist. Neck: Supple. No JVD. No bruits bilaterally. Cardiovascular: Irregular rate and rhythm. No murmur. Respiratory: Clear to auscultation bilaterally. Abdomen: Soft and nontender. Bowel sounds present in all 4 quadrants. Lower Extremities: There is no edema. Pulses +2 bilaterally. No clubbing or cyanosis. Neuro Evaluation: Speech is clear. Cranial nerves II through XII grossly intact. Motor strength is 5/5 bilaterally. DISCHARGE INSTRUCTIONS: Please note that the patient's CT showed a 70 mm subpleural patchy nodule opacity at the left lower lobe and recommendation is to follow up with a CT in approximately 3 to 6 months. I discussed it with the patient. The patient stated that he has history of multiple pneumonias in the left lung, and at some point when he was a child, he was actually offered a lobectomy that his family refused. He is aware of scarring on his left lung. Nevertheless, I am referring the patient back to his primary care provider, who likely has medical records from the patient's previous hospital stay at another hospital to compare it to. If this finding is new, the patient is recommended to have a CT in 3 to 6 months which he is aware of. Please note that this is a short summary of the patient's hospital stay. Please refer to further medical records for details. TIME SPENT: Approximately 40 minutes were spent on the patient's discharge. [id number]/[facility] #: [id number] [facility]
--- NOTE | 2019-03-16 21:29 | DS ---
CONTINUATION ADDENDUM NOW INCLUDED ON THIS REPORT DISCHARGE SUMMARY: DATE OF ADMISSION: 03/15/19. DATE OF DISCHARGE: 03/16/19 PRIMARY CARE PROVIDER: Dr. Rangel. DISPOSITION AT DISCHARGE: Home. CONDITION AT DISCHARGE: Stable. DISCHARGE DIAGNOSES: 1. Gradual onset of 3 weeks of left-sided lower chest pain with low probability cardiac stress test documented on 03/16/19. 2. Exacerbation of benign positional vertigo with onset of bilateral facial numbness, left more than right, as well as bilateral leg weakness. All of the symptoms resolved prior to patient's presentation to the ED. The MRI is pending. The patient will be discharged to home if the MRI is negative. SECONDARY DIAGNOSES: 1. History of significant coronary artery disease. 2. History of vertigo and tinnitus. 3. History of hypertension. 4. History of dyslipidemia. 5. Prostate cancer. 6. Benign prostatic hypertrophy. 7. History of multiple cardiac stents. MEDICATIONS AT DISCHARGE: Unchanged from admission and includes: 1. Ultram 50 mg every 6 hours p.r.n. 2. Zocor 20 mg daily. 3. Men's multivitamin 1 tablet daily. 4. Singular 10 mg at bedtime. 5. Cozaar 25 mg at bedtime. 6. Valium 5 mg b.i.d. p.r.n. 7. QVAR 2 puffs inhale b.i.d. 8. Vitamin C 1000 mg daily. LABORATORY DATA: Laboratory data and studies performed during the hospital stay included: On 03/16/19, white blood cell count of 5.2, hemoglobin 13.9, hematocrit 40, platelets of 187,000. D-dimer was 415. Sodium of 140, potassium 3.5, chloride 107, carbon dioxide 27, BUN 13, creatinine 0.92. The patient's troponins were 0.04 and 0.03. Triglycerides 245, cholesterol total 165, LDL 78, and HDL 27. TSH was 0.79. T4 was 6.4. CT angiogram of the chest. Impression: " No visible acute pulmonary embolus. There is left basal atelectatic change or scarring. There is subpleural patchy nodular opacity in the superior segment, left lower lobe measuring a maximum of 17 mm. Cannot exclude indeterminate pulmonary nodule. CT in 3 to 6 months to confirm persistence of the nodule, if unchanged and component remains below 6 mm , annual CT should be performed for 5 years." Brain MRI is pending at the time of dictation. The patient's cardiac stress test was assessed as low risk with impression: "No evidence of fixed reversible perfusion defect. Normal ejection fraction." CONTINUATION ADDENDUM: Please note that the patient had remained in sinus bradycardia and sinus arrhythmia throughout his hospital stay without symptoms and was normotensive. He underwent a cardiac stress test that noted the patient to be in sinus bradycardia with low risk. He has had complaints of leg numbness and dizziness , some of it due to a bout of benign positional vertigo that he has history of. Nevertheless, we obtained an MRI of his brain with the report just coming back and read by the radiologist as "no acute intracranial abnormalities identified. Mild chronic small- vessel ischemic change is likely. Mild cerebral volume loss." At this point, the patient is back to his baseline, ambulates without any support and with no neurologic deficits, and he is going to be discharged home to follow up with his primary care provider Dr. Rangel in approximately 4 to 7 days. PHYSICAL EXAMINATION: Vital Signs: At the time of discharge, blood pressure of 129/60, heart rate of 59 and regular, respiratory rate 16, oxygen saturation saturation 98% on room air, temperature 97.8. General: The patient is a pleasant 73-year-old male who is in no acute distress. Alert, awake, and oriented x3. HEENT: Head atraumatic and normocephalic. Eyes: Pupils are equal and reactive to light and accommodation. Oropharynx clear. Mucosa moist. Neck: Supple. No JVD. No bruits bilaterally. Cardiovascular: Irregular rate and rhythm. No murmur. Respiratory: Clear to auscultation bilaterally. Abdomen: Soft and nontender. Bowel sounds present in all 4 quadrants. Lower Extremities: There is no edema. Pulses +2 bilaterally. No clubbing or cyanosis. Neuro Evaluation: Speech is clear. Cranial nerves II through XII grossly intact. Motor strength is 5/5 bilaterally. DISCHARGE INSTRUCTIONS: Please note that the patient's CT showed a 70 mm subpleural patchy nodule opacity at the left lower lobe and recommendation is to follow up with a CT in approximately 3 to 6 months. I discussed it with the patient. The patient stated that he has history of multiple pneumonias in the left lung, and at some point when he was a child, he was actually offered a lobectomy that his family refused. He is aware of scarring on his left lung. Nevertheless, I am referring the patient back to his primary care provider, who likely has medical records from the patient's previous hospital stay at another hospital to compare it to. If this finding is new, the patient is recommended to have a CT in 3 to 6 months which he is aware of. Please note that this is a short summary of the patient's hospital stay. Please refer to further medical records for details. TIME SPENT: Approximately 40 minutes were spent on the patient's discharge. [id number]/[facility] #: [id number] #: [id number] SUAD
== END 2019-03-16 18:20 | disposition home or self-care (01) ==
LOC: ED 16:40 → MEDTELE 22:31
PROVIDERS: ADMIT Internal Medicine; ATTEND Internal Medicine
DX: R07.89 Other chest pain (principal); H81.12 Benign paroxysmal vertigo, left ear; I25.10 Atherosclerotic heart disease of native coronary artery without angina pectoris; R53.83 Other fatigue; R53.1 Weakness; Z79.899 Other long term (current) drug therapy; Z95.5 Presence of coronary angioplasty implant and graft; Z87.891 Personal history of nicotine dependence; I10 Essential (primary) hypertension; E78.5 Hyperlipidemia, unspecified; Z85.46 Personal history of malignant neoplasm of prostate; N40.0 Benign prostatic hyperplasia without lower urinary tract symptoms
CPT/HCPCS: 36415; 70450; 70553; 71045; 71275; 78452; 80048; 80053; 80061; 81003; 81015; 82550; 82553; 83605; 83735; 83880; 84436; 84443; 84484; 85025; 85379; 85610; 85730; 87086; 93005; 93017; 93306; 96372; 99284; A9270-GY; A9502; A9579; G0378; J0280; J1650; J2785; Q9967